=== PATIENT | male | born 1980 | race African-American/Black ===

== ENCOUNTER 2016-09-14 12:22 | Inpatient (IN) | payer OTHER ==
--- NOTE | ~2016-09-14 | CO ---
Unit #: [id number] #: [id number] Patient: RENETTA GUTHRIE [id number] [address] [place], [place] [address] [id number] I MR#: [id number] NAME: RENETTA GUTHRIE ROOM: 317 Age: 36 Sex: M Admission Date: 09/14/2016 : 1980 Attending Physician: Luis March M.D. Primary Care Physician: Bruna Whalen A.P.R.N. Consultation Date: 09/16/2016 CONSULTATION REPORT REASON FOR CONSULTATION Sleep apnea. HISTORY OF PRESENT ILLNESS A 36-year-old gentleman, who carries a diagnosis of COPD, who presents with a several-day history of wheezing, shortness of breath, and cough with yellow sputum. He apparently was recently started on albuterol and Breo, with minimal improvement. He presented to the hospital where he was admitted. He does feel better today on IV steroids and nebulized bronchodilators. He does have sleep apnea. He wears a CPAP "for the most part" with all sleep. He does work 3rd shift. When he is able to obtain adequate sleep, he is not sleepy. He denies any history of snoring with the mask in place. PAST MEDICAL HISTORY COPD, hypertension, diabetes, chronic back pain, and neuropathy. ALLERGIES Lisinopril. HOME MEDICATIONS Breo and an albuterol inhaler, Zetia, chlorthalidone, irbesartan, tizanidine, Percocet, vitamins, Coreg, Elavil, Norvasc, metformin, Flonase, gabapentin, a variety of insulins, hydralazine, lisinopril, metoprolol, Lipitor, and Prilosec. SOCIAL HISTORY Stopped smoking two years ago. FAMILY HISTORY No definite familial lung disease. REVIEW OF SYSTEMS He is feeling better. He denies chest pain, palpitations, abdominal pain, melena, hematochezia, hematemesis, hematuria, dysuria, focal weakness, or paresthesias. Further review of systems is negative. He cannot identify who his sleep doctor is. He got a sleep study at [place], a year or so ago, and apparently does not keep his followups, although that is unclear, he just cannot remember who his sleep doctor is. PHYSICAL EXAMINATION GENERAL: Reveals a gentleman who is sitting on the side of the bed, in no acute distress. VITAL SIGNS: Afebrile, pulse 94, respiratory rate is 18, blood pressure Unit #: [id number] #: [id number] Patient: RENETTA GUTHRIE is 135/69, 5 foot 11 inches, and 444 pounds with a BMI of 51. HEENT: Pupils equal, round, and reactive to light. Sclerae anicteric. Head atraumatic. NECK: Supple. No supraclavicular or cervical adenopathy appreciated. CHEST: Decreased breath sounds. A rare wheeze, but reasonable breath sounds. CARDIAC: Reveals regular rate and rhythm. No pathologic murmur, rub, or gallop. ABDOMEN: Obese, soft, and nontender. EXTREMITIES: Reveal no clubbing, cyanosis, or edema. No calf tenderness. SKIN: Warm and dry without rash or diaphoresis. Please note his morbid obesity limits exam. LABORATORY EXAMINATION CT scan; some motion artifact, no PE. The radiologist is calling a pulmonary nodule, it is versus an intrapulmonary lymph node because it is right on secondary lobule. His BUN is 0.9. BNP 138. White blood cell count 11.8, hemoglobin 11.4, and platelet count 245. Rhythm strip, some pauses last night, hence the consultation. Cardiology is evaluating. IMPRESSION 1. Chronic obstructive pulmonary disease with exacerbation, improving, it is unclear how firm the diagnosis of chronic obstructive pulmonary disease is, could be a strong asthma component. 2. Obstructive sleep apnea, clinically compliant, although I do suspect some degree of noncompliance. It sounds at least historically than when he wears it he is well treated. 3. Cardiac arrhythmias, possibly related to sleep apnea. 4. Pulmonary nodules versus intrapulmonary lymph nodes. 5. Multiple medical problems, above. PLAN Certainly weight loss is of the greatest benefit. I will check nocturnal oximetry on CPAP. If it shows adequate oxygenation, then I suspect he is fairly close to being well treated. Certainly, use of his CPAP will all sleep is required. If it does show desaturations, particularly in the form of sleep apnea, we will increase his CPAP. I will start Dulera and continue his Breo at home. 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 I would suggest outpatient PFTs and consider allergy evaluation if not already performed. Thank you very much for allowing me to participate in the care of Mr. Guthrie. Dictated by... Sarah Ortega/brian TD: 09/17/2016 14:17 JOB #: [id number] Unit #: [id number] #: [id number] Patient: RENETTA GUTHRIE CONSULTATION REPORT Page 1 of 1 X Eric Coleman MD CONSULTATION REPORT
--- NOTE | ~2016-09-14 | BMI ---
[facility] Nutrition Therapy DATE: 09/15/16 Patient: RENETTA WEINBERG Physician: RICHIE Address: [address] [place] [address] Room/Bed: [address] [place] [address], Zip: [place] [address] Admit Date: 09/14/16 Date of : [birth year] Height: Weight: 372 169 HIGH BMI NOTE: DX: 36 y/o male admitted with dyspnea ANTHROPOMETRICS: Ht: 71", Wt: 169 kg, BMI: 52 (Stage III obese) DIET: Consistent carb diet INTERVENTION: Restricted diet, meds/fluids per MD RECOMMENDATIONS: Consider adding healthy heart restriction to current diet order to promote a gradual weight loss towards a healthy BMI range. Respectfully, Lissy Lockhart RD, LD Food and Nutritional Services [facility] cc: client file
--- NOTE | ~2016-09-14 | HP ---
Unit #: [id number] #: [id number] Patient: RENETTA WEINBERG [id number] [address] [address] [id number] I MR#: [id number] NAME: RENETTA WEINBERG ROOM: 317 Age: 36 Sex: M Admission Date: 09/14/2016 : 1980 Attending Physician: Jeovany Restrepo M.D. Primary Care Physician: Bruna Whalen A.P.R.N. HISTORY AND PHYSICAL CHIEF COMPLAINT Shortness of breath. HISTORY OF PRESENT ILLNESS The patient is a 36-year-old male with a history of COPD, diabetes, hypertension, and multiple medical problems, who presented to [facility] earlier this morning complaining of shortness of breath with a productive cough of yellow sputum for two weeks. The patient was seen by the PMD four days ago and was given inhalers with Breo and albuterol. The patient was diagnosed with influenza pneumonia back in March and stayed in [facility] for a week and then was discharged home. The patient stated that patient has been having on and off shortness of breath for the last few months. The patient stopped smoking two years ago and has smoked a pack of cigarettes daily for six to seven years. The patient denies any fever, chills, nausea, vomiting, or chest pain. PAST MEDICAL HISTORY 1. Chronic obstructive pulmonary disease. 2. Hypertension. 3. Diabetes. 4. Chronic back pain. 5. Neuropathy. PAST SURGICAL HISTORY None. ALLERGIES Lisinopril. HOME MEDICATIONS 1. Zetia. 2. Chlorthalidone. 3. Irbesartan. 4. Tizanidine. 5. ProAir. 6. Percocet. 7. Vitamin. 8. Coreg. 9. Amitriptyline. 10. Amlodipine. 11. Metformin. 12. Flonase. 13. Gabapentin. Unit #: [id number] #: [id number] Patient: RENETTA WEINBERG 14. Breo. 15. Humalog. 16. Levemir. 17. Hydralazine. 18. Lisinopril. 19. Metformin. 20. Metoprolol. 21. Lipitor. 22. Prilosec. SOCIAL HISTORY He stopped smoking two years ago. Denies alcohol or any illicit drug abuse. FAMILY HISTORY Reviewed and none. PHYSICAL EXAMINATION GENERAL: Patient is lying in bed not in acute distress. VITAL SIGNS: Temperature is 37.2, pulse 104, respiratory rate 24, blood pressure 171/95, and saturation 93% on room air. Weight is 372 pounds. HEENT: Head atraumatic, normocephalic. Pupils equal, round, and reactive to light and accommodation. Extraocular movements are intact. NECK: Supple. LUNGS: Decreased air entry at the bases. No rhonchi, no rales. HEART: Regular rate and rhythm. ABDOMEN: Soft. Positive bowel sounds. EXTREMITIES: No cyanosis, no clubbing. NEUROLOGIC: Alert, awake, and oriented. No gross focal motor deficit. DIAGNOSTIC STUDIES LABORATORY: D-dimer of 264. Sodium 139, potassium 3.8, chloride 103, bicarb 30, glucose 195, BUN 16, creatinine 1, calcium 8.8, protein 7.7, AST 21, and ALT 20. WBC 9.3, hemoglobin 11.5, hematocrit 34.2, and platelets 235,000. IMAGING: CTA of the chest shows limited evaluation secondary to suboptimal opacification of distal segmental and subsegmental pulmonary arteries and obscuration by the patient's body habitus. Allowing for this, no central pulmonary embolism is seen. A 7 mm noncalcified nodule in the right upper lobe is noted. A 5 mm nodule is seen within the right middle lobe just below the minor fissure. These are nonspecific. Linear subsegmental atelectatic-type changes in the linear subsegment left upper lobe and superior right lower lobe. No consolidations. Cholecystectomy. Mildly prominent left infrahilar lymph nodes. Chest x-ray shows no active disease. ASSESSMENT 1. Chronic obstructive pulmonary disease exacerbation. 2. Bronchitis. 3. Uncontrolled diabetes. PLAN Admit the patient to observation with telemetry. Continue with IV steroid Solu-Medrol 60 mg q.8, DuoNebs q.4 p.r.n., azithromycin, and sliding scale. Repeat the labs again in the morning. Patient can have CPAP at night for sleep apnea. Further recommendations will follow. Unit #: [id number] #: [id number] Patient: LENARDRENETTA Almeida Dictated by Sarah Plascencia TD: 09/14/2016 15:19 JOB #: [id number] HISTORY AND PHYSICAL Page 1 of 1 X X HISTORY AND PHYSICAL
--- NOTE | ~2016-09-14 | CO ---
Unit #: [id number] #: [id number] Patient: RENETTA WEINBERG [id number] [facility]. [place] [address] [place], [place] [address] [id number] I MR#: [id number] NAME: RENETTA WEINBERG ROOM: 317 Age: 36 Sex: M Admission Date: 09/14/2016 : 1980 Attending Physician: Luis March M.D. Primary Care Physician: Bruna Whalen A.P.R.N. Consultation Date: 09/16/2016 CONSULTATION REPORT REASON FOR CONSULT Sinus pauses. HISTORY OF PRESENT ILLNESS This is a 36-year-old male previously known to Dr. Lux and currently Dr. Giraldo with a past medical history of chest pain. The patient underwent a treadmill stress test in October 2013 which revealed no EKG changes to suggest ischemia. A 24-hour Holter monitor was obtained on 12/23/2011 which revealed sinus rhythm and rare PVCs. He most recently had a cardiac catheterization in 2016 at one of the [facility] facilities and states that the test was normal and no intervention was needed. He was told that he was having chest pain likely from uncontrolled high blood pressure. Additional past medical history includes hyperlipidemia, diabetes mellitus, COPD, obesity, obstructive sleep apnea and allergy to ELEANOR inhibitors. The patient is a reformed smoker. He presented to the hospital with complaints of shortness of breath. He states that he has been short of breath for the last several months and more recently it worsened. He has also had a productive cough with yellow sputum and a possible fever though he did not check his temperature. He was just started on Breo and albuterol as an outpatient for shortness of breath. He has had some pain in his chest that is present with coughing. There is no radiation. There are no associated symptoms with nausea, vomiting or diaphoresis. He has had some occasional palpitations but nothing sustained. He admits to shortness of breath at night. He has also had some swelling in his legs. He has had no dizziness or syncope. He was admitted to the hospital for a COPD exacerbation with acute bronchitis. He was started on Solu-Medrol, nebulizers, and azithromycin. Blood pressure was elevated and he was given a dose of Vasotec. He was placed on telemetry and was noted to have pauses up to 3.14 seconds between the hours of 2 a.m. to 6:30 a.m. while the patient was sleeping. The nurse states that he was on his CPAP but the machine was not turned on when she came in though the mask was in place. Cardiology was consulted for pauses. The patient is currently resting comfortably and denies any symptoms. He is on high-dose carvedilol and, due to pauses, it will be decreased. Records have been requested from [facility]. PAST MEDICAL HISTORY 1. Recent cardiac catheterization reportedly at [facility] which was normal per patient. Records unavailable. 2. Treadmill stress test 11/07/2013 revealed no EKG changes to suggest ischemia. 3. 24-hour Holter monitor 12/23/2011 revealed sinus rhythm with rare Unit #: [id number] #: [id number] Patient: RENETTA WEINBERG PVCs. 4. Hypertension. 5. Hyperlipidemia. 6. Diabetes mellitus type 2. 7. Obesity. 8. COPD. 9. Obstructive sleep apnea on CPAP. PAST SURGICAL HISTORY 1. Cardiac catheterization. 2. Cholecystectomy. HOME MEDICATIONS 1. Ezetimibe 10 mg p.o. daily. 2. Chlorthalidone 25 mg p.o. daily. 3. Irbesartan 300 mg p.o. daily. 4. Tizanidine 4 mg p.o. t.i.d. p.r.n. muscle spasms. 5. ProAir one to two puffs inhalation q.4 h. p.r.n. shortness of breath. 6. Percocet 7.5/325 mg p.o. b.i.d. p.r.n. for pain. 7. Vitamin D2 50,000 units p.o. weekly every Monday. 8. Carvedilol 12.5 mg p.o. b.i.d. 9. Amitriptyline 25 mg p.o. h.s. 10. Amlodipine 5 mg p.o. daily. 11. Gabapentin 400 mg p.o. t.i.d. 12. Breo one inhalation daily. 13. Humalog 20 units subcu b.i.d. 14. Levemir 35 units subcu b.i.d. 15. Hydralazine 50 mg p.o. t.i.d. 16. Metformin 500 mg p.o. b.i.d. 17. Metoprolol tartrate 25 mg p.o. daily. 18. Atorvastatin 20 mg p.o. daily. 19. Prilosec 40 mg p.o. daily. ALLERGIES ELEANOR inhibitors. SOCIAL HISTORY The patient lives in a private residence. He is a reformed smoker. There are no reports of alcohol or illicit drug use. FAMILY HISTORY Noncontributory. REVIEW OF SYSTEMS A 10-point review of systems negative except for details above in the HPI. PHYSICAL EXAMINATION VITAL SIGNS: Temperature 97.5, pulse 94, blood pressure 185/69. GENERAL: This is a 36-year-old male in no acute distress. SKIN: Warm and dry. NECK: Supple. No jugular vein distention. No hepatojugular reflux. Normal carotid upstrokes. No carotid bruits auscultated. HEART: S1, S2. Regular rate and rhythm. No murmurs, rubs, or gallops. LUNGS: Bilateral breath sounds have good air entry throughout all lung mahan. Respirations even and unlabored. No rales, rhonchi, or wheezes. ABDOMEN: Soft, nontender, nondistended. Positive bowel sounds auscultated times four quadrants. No ascites noted. Unit #: [id number] #: [id number] Patient: RENETTA WEINBERG EXTREMITIES: Bilateral lower extremities have no pretibial pitting edema. DP and PT pulses are 2+. Capillary refill is less than 2 seconds. DIAGNOSTIC STUDIES LABORATORY: White blood cell count 11.8, hemoglobin 11.4, hematocrit 35.5, platelets 245. Sodium 139, potassium 4.1, chloride 98, CO2 is 29, BUN 22, creatinine 0.9, glucose 328. BNP 138. Total cholesterol 130, triglycerides, 150, LDL 67, HDL 33. TSH 0.16. D-dimer 484. IMAGING: Chest x-ray reveals no acute findings. Poor quality film. CTA of the chest is limited secondary to suboptimal opacification due to body habitus. No central pulmonary embolus. Right upper lung nodule and right middle lobe nodule, nonspecific. Linear atelectasis. Left upper hilar lymph node. Cholecystectomy. Recommend CT of the chest as an outpatient in six months. CARDIOVASCULAR: EKG reveals sinus tachycardia with a ventricular rate of 103 beats per minute. Nonspecific ST-T-wave changes noted. QTC 458 msec. IMPRESSION 1. Acute exacerbation of chronic obstructive pulmonary disease. 2. Obstructive sleep apnea. 3. Obesity. 4. Sinus pauses up to 3.14 seconds during sleep. 5. Hypertension. 6. Hyperlipidemia. 7. Diabetes mellitus, insulin dependent. 8. Reportedly normal cardiac catheterization in 2017. Records pending. 9. Reformed tobacco abuse. PLAN 1. The patient presented to the hospital with complaints of shortness of breath. He was admitted for COPD exacerbation and started on antibiotics, nebulizers, and steroids. 2. Cardiology was consulted for sinus pauses which appear to be during hours of sleep. 3. Patient's beta taqueria will be decreased with parameters. 4. TSH level is low. Will check a free T3 and T4. 5. 2D echocardiogram with Doppler will be ordered to assess left ventricular function and valves. 6. Patient has been advised to lose weight by means of exercise and reduction of caloric intake. Dictated by... Portia Valdez APRN for Sarah Sutherland TD: 09/19/2016 15:33 JOB #: [id number] Unit #: [id number] #: [id number] Patient: RENETTA WEINBERG CONSULTATION REPORT Page 1 of 1 X X CONSULTATION REPORT
--- NOTE | ~2016-09-14 | DS ---
Unit #: [id number] #: [id number] Patient: RENETTA WEINBERG [id number] [address] [place], [place] [address] [id number] I MR#: [id number] NAME: RENETTA WEINBERG ROOM: 317 Age: 36 Sex: M Admission Date: 09/14/2016 : 1980 Discharge Date: 09/19/2016 Attending Physician: Luis March M.D. Primary Care Physician: Bruna Whalen A.P.R.N. DISCHARGE SUMMARY ADMITTING DIAGNOSIS Acute hypoxic respiratory failure. FURTHER DIAGNOSES 1. Chronic obstructive pulmonary disease exacerbation versus asthma exacerbation. 2. Sinus pauses. 3. Morbid obesity. 4. Sleep apnea. 5. Hypertension. 6. Hyperlipidemia. 7. Diabetes mellitus type 2, poorly controlled. HISTORY OF PRESENT ILLNESS The patient is a 36-year-old gentleman with past medical history of morbid obesity, history of sleep apnea who intermittently uses CPAP machine, diabetes, hypertension. Presented to the emergency room with the chief complaint of shortness of breath and cough with yellow sputum. In the hospital course he was started on steroids. He was started on broad-spectrum antimicrobials for community-acquired pneumonia. His breathing was slowly improving. He was having sleep apnea at night, and he was noted to sinus pauses. Cardiology was consulted and started him on beta-taqueria, encouraged him to continue his CPAP machine. He does not have any pulmonary as an outpatient. We consulted Dr. Coleman. Dr. Coleman evaluated him. He recommends outpatient studies for PFT and also possibly studies for asthma evaluation. He is morbidly obese, and he wants to be evaluated for bariatric surgery. Bariatric surgery coordinator came and gave the information. He is supposed to follow up with them as an outpatient for further management. Unfortunately, he was noncompliant with his medications. Spoke with him at length and encouraged him to take all his medications regularly. PHYSICAL EXAMINATION ON THE DAY OF DISCHARGE VITAL SIGNS: Temperature 97.9, pulse rate 98 respirations 18, blood pressure 147/91. GENERAL: The patient is alert and oriented x3, lying in bed, no acute distress. HEENT: Normocephalic, atraumatic. No icterus. PERRLA. Extraocular muscles intact. NECK: Supple. No JVD. HEART: S1, S2. Regular rate and rhythm. CHEST: Bilateral equal air entry. Clear to auscultation. EXTREMITIES: Mild edema. Unit #: [id number] #: [id number] Patient: RENETTA WEINBERG DIAGNOSTIC STUDIES CARDIOVASCULAR: He did have a two-D echocardiogram in the hospital course, which showed an EF of 50% to 55%. Technically extremely limited study. Mildly dilated left atrium. Mild mitral regurgitation. Mild tricuspid regurgitation. RV systolic pressure 27 mmHg. No evidence of any pericardial effusion. DISCHARGE MEDICATIONS 1. Lipitor 20 mg daily. 2. Albuterol 2 puffs q.4 p.r.n. shortness of breath. 3. Medrol Dosepak. 4. Flonase 0.05% nasal spray daily. 5. Neurontin 400 mg t.i.d. 6. Amitriptyline 25 mg at bedtime. 7. Zetia 10 mg daily. 8. Coreg 6.5 mg b.i.d. 9. Norvasc 5 mg daily. 10. Metoprolol 25 mg daily. 11. Breo Ellipta 100/25 mcg daily. 12. Chlorthalidone 25 mg daily. 13. Humibid LA 600 mg b.i.d. 14. Hydralazine 50 mg t.i.d. 15. Avapro 300 mg daily. 16. Levemir 75 units subcu b.i.d. 17. NovoLog 20 units subcu b.i.d. before meals 18. Insulin sliding scale coverage. 19. Oxycodone 7.5/325 mg p.o. b.i.d. p.r.n. pain. Kindly note we are not giving any new prescriptions. He will be getting his own medications. 20. Omeprazole 40 mg daily. 21. Zanaflex 4 mg t.i.d. FOLLOWUP He is instructed to follow with pulmonary, cardiology and bariatric surgery as an outpatient. NOTE: Total time spent in his care - 35 minutes. Dictated by..Sarah Veliz/marcia TD: 09/19/2016 15:16 JOB #: [id number] Unit #: [id number] #: [id number] Patient: LENARD,RENETTA R DISCHARGE SUMMARY Page 1 of 1 X X DISCHARGE SUMMARY
--- NOTE | ~2016-09-14 | EKG ---
PATIENT: RENETTA WEINBERG UNIT #: [id number] Ventricular Rate: 103 BPM Atrial Rate: 103 BPM P-R Interval: 154 ms QRS Duration: 98 ms Q-T Interval: 350 ms QTC Calculation(Bezet): 458 ms P Bloomingrose: 49 degrees Calculated R [place]: 73 degrees Calculated T Bloom[place]: 74 degrees Diagnosis Line: Sinus tachycardia Diagnosis Line: Otherwise normal ECG Diagnosis Line: When compared with ECG of 15-DEC-2011 07:38, Diagnosis Line: No significant change was found Diagnosis Line: Confirmed by JAEL BOYER MD ([id number]) on Diagnosis Line: 09/17/2016 4:27:23 PM INTERPRETING MD: ROSALIND MARTINEZ
--- NOTE | ~2016-09-14 | A ---
[facility] Nutrition Therapy DATE: 09/19/16 Patient: RENETTA WEINBERG Physician: [email or web address] Address: [address] [place] [address] Room/Bed: [address] [place] [address], Zip: [place] [address] Admit Date: 09/14/16 Date of : [birth year] Height: Weight: 440 200 NUTRITIONAL ASSESSMENT: REASON: Consult re: diabetic diet education Admitting Dx: 36 y/o male admitted with COPD exacerbation and bronchitis PMH: COPD, DM, HTN, hx smoking (quit 2 years ago), sleep apnea, neuropathy, chronic back pain Anthropometrics: 71", Wt: 169 kg, BMI: 52 (Stage III obese) Labs: Glucose 287, POC 272-295, BUN 31, lipid panel WNL, no A1C available Meds: Vitamin D, Solu-medrol, PPI, Levemir, Novolog (high SSI) I/O & Bowel function: Last BM 09/15 Skin Integrity: No issues, 1+ edema BLE Assessment: Chart reviewed, events noted. See high BMI note dated 09/15/16, RD consulted to provide diabetic diet education. Patient is on 2L nasal cannula intermittently and CPAP at night due to sleep apnea. He takes insulin and Metformin at home to control his diabetes, and he states he is compliant with this. Says his does the shopping/cooking, encouraged him to share the diet education handouts with her. Reviewed the following handouts with the patient: T2 diabetes MNT, label reading tips, 1800 calorie 5-day sample meal plan. The patient was engaged and asked questions, showed good understanding of the materials, left contact info. Unsure of what his motivation level to follow the diet at home will be. Encouraged weight loss. No A1C lab available. See recs below. Dx: 1) Stage III obese r/t diet, lifestyle, inactivity AEB BMI 52. 2) Food and nutrition related knowledge deficit r/t no prior diet education AEB RD consult, diabetic/weight loss education needed. Intervention: Diabetic/weight loss diet education, check A1C Monitoring, Evaluation and Goals: 1. Gradual weight loss towards a healthy BMI range. 2. Glucose, A1C WNL. 3. Understanding/implementation of diet education. Monitor: Per protocol, criteria to determine if above goals met [facility] Nutrition Therapy DATE: 09/19/16 Patient: RENETTA WEINBERG Physician: RICHIE Address: [address] [place] [address] Room/Bed: [address] [place] [address], Zip: [place] [address] Admit Date: 09/14/16 Date of : [birth year] Height: Weight: 440 200 Recommendations: 1. Consider adding healthy heart restriction to current diet order (consistent carb) to promote a gradual weight loss towards a healthy BMI range. 2. Check A1C lab. Optimize insulin regimen to promote adequate blood glucose control (note the patient is also on Solu-medrol). 3. RD provided both verbal and written diet education on diabetic/weight loss diet with handouts and contact info. Patient showed good understanding of the materials and was engaged throughout the education asking questions. Mild nutrition risk Respectfully, Lissy Lockhart, ISAIAH, LD Food and Nutritional Services [facility] cc: client file
[~2016-09-14 12:22] MED LIST: ALBUTEROL17 G1 IH; ALBUTEROL17 GM INH; ALLERGY10 M2 PO; ATORVASTATIN CA20 MG PO; AVAPRO PO; AZITHROMYCIN250 MG PO; BACTRIM DS TABL1 TA1 PO; BP MED; CHOLESTEROL MED; DIFLUCAN100 MG PO; DOXYCYCLINE HY100 M1 PO; FLEXERIL10 MG PO; GLIPIZIDE10 MG/BOTT PO; GLUCOPHAGE500 MG PO; GLUCOPHAGE850 MG PO; GLUCOTROL10 MG PO; HUMALOG100 U/ML SQ; HUMULIN N100 U/ML SQ; HYDROCHLOROTHIA25 MG PO; LANTUS100 U/ML SUBQ; LIPITOR20 MG PO; LISINOPRIL10 MG PO; LISINOPRIL20 MG PO; LOMOTIL TABLET1 TAB PO; LOPID600 MG PO; MEDROL PO; METFORMIN HCL500 M1 PO; METFORMIN PO; METOPROLOL TAR25 MG PO; NAPROSYN500 MG PO; NEURONTIN300 MG PO; NOVOLIN R100 UNITS/ SQ; OMEPRAZOLE40 M1 PO; PERCOCET5/325 PO; PHENERGAN DM PO; PHENERGAN PO; PREDNISONE50 MG PO; PRILOSEC PO; PRINIVIL20 M1; PRINIVIL40 MG PO; RANITIDINE HCL150 M1 PO; SINGULAIR PO; TESSALON200 MG PO; TOPROL XL PO; ULTRAM PO; UNKNOWN PAIN MED; ZESTRIL10 M1 PO; ZITHROMAX PO; ZOVIRAX400 MG PO; [UNRECOGNIZED DRUG - REMARK]
[2016-09-14] MEDS ORDERED: BREO ELLIPTA 11 EACH INH (14:25)
[2016-09-14] MEDS ORDERED: GABAPENTIN400 M2 PO (14:25)
[2016-09-14] MEDS ORDERED: HUMALOG100 UNIT/1 SUBQ (14:27)
[2016-09-14] MEDS ORDERED: LEVEMIR100 UNITS/ SUBQ (14:28)
[2016-09-14] MEDS ORDERED: HYDRALAZINE HCL25 MG PO (14:28)
[2016-09-14] MEDS ORDERED: PERCOCET PO (14:32)
[2016-09-14] MEDS ORDERED: VITAMIN D2400 UNIT PO (14:33)
[2016-09-14] MEDS ORDERED: COREG12.5 MG PO (14:34)
[2016-09-14] MEDS ORDERED: AMITRIPTYLINE H25 MG PO (14:35)
[2016-09-14] MEDS ORDERED: AMLODIPINE BESYL5 MG PO (14:35)
[2016-09-14] MEDS ORDERED: EZETIMIBE10 MG PO (14:36)
[2016-09-14] MEDS ORDERED: CHLORTHALIDONE25 M1 PO (14:36)
[2016-09-14] MEDS ORDERED: IRBESARTAN300 MG PO (14:37)
[2016-09-14] MEDS ORDERED: TIZANIDINE HCL4 M1 PO (14:37)
[2016-09-14] MEDS ORDERED: METFORMIN HCL500 M1 PO (14:39)
[2016-09-14] MEDS ORDERED: PROAIR RESPICL90 MCG INH (14:39)
[2016-09-14] MEDS ORDERED: FLONASE ALLERG9.9 ML (14:41)
[2016-09-15 05:39] LABS: HEMATOCRIT 35.5 % (38.0-50.0); HEMOGLOBIN 11.4 gm/dL (13.0-16.0); MEAN CELL VOLUME 73.4 FL (83-96); MEAN CORPUSCULAR HEMOGLOBIN 23.6 PG (28-34); MEAN CORPUSCULAR HGB CONC 32.2 g/dL (30-36); MEAN PLATELET VOLUME 9.8 FL (6.5-11.5); RED BLOOD COUNT 4.84 X10e (3.90-5.60); RED CELL DISTRIBUTION WIDTH 14.5 % (11.0-15.5); WHITE BLOOD COUNT 11.8 X10e3 (4.0-10.5)
[2016-09-15 07:09] LABS: CALCIUM SERUM 8.7 mg/dL (8.4-10.2); GLOM FILT RATE Estimated 111.7 mL/min (>60); POTASSIUM 4.3 mmol/L (3.5-5.1)
[2016-09-16 07:03] LABS: BUN/CREATININE RATIO 24.44; CALCIUM SERUM 8.7 mg/dL (8.4-10.2); CREATININE SERUM 0.9 mg/dL (0.6-1.4); GLOM FILT RATE Estimated 126.9 mL/min (>60); POTASSIUM 4.1 mmol/L (3.5-5.1)
[2016-09-16 15:07] LABS: FREE T3 2.8 pg/mL (2.5-3.9)
[2016-09-16 15:08] LABS: FREE THYROXIN (T4) 0.96 ng/dL (0.58-1.64)
[2016-09-17 07:37] LABS: BUN/CREATININE RATIO 27.5; CALCIUM SERUM 8.6 mg/dL (8.4-10.2); CREATININE SERUM 0.8 mg/dL (0.6-1.4); GLOM FILT RATE Estimated 133.3 mL/min (>60); POTASSIUM 3.9 mmol/L (3.5-5.1)
[2016-09-18 09:23] LABS: HEMATOCRIT 39.8 % (38.0-50.0); HEMOGLOBIN 12.6 gm/dL (13.0-16.0); MEAN CELL VOLUME 73.2 FL (83-96); MEAN CORPUSCULAR HEMOGLOBIN 23.2 PG (28-34); MEAN CORPUSCULAR HGB CONC 31.7 g/dL (30-36); MEAN PLATELET VOLUME 10.1 FL (6.5-11.5); RED BLOOD COUNT 5.44 X10e (3.90-5.60); RED CELL DISTRIBUTION WIDTH 14.6 % (11.0-15.5); WHITE BLOOD COUNT 16.8 X10e3 (4.0-10.5)
[2016-09-18 09:37] LABS: CALCIUM SERUM 8.9 mg/dL (8.4-10.2); GLOM FILT RATE Estimated 111.7 mL/min (>60); POTASSIUM 4.1 mmol/L (3.5-5.1)
[2016-09-19 08:08] LABS: BUN/CREATININE RATIO 28.18; CALCIUM SERUM 8.9 mg/dL (8.4-10.2); CREATININE SERUM 1.1 mg/dL (0.6-1.4); GLOM FILT RATE Estimated 99.6 mL/min (>60)
[2016-09-19] MEDS ORDERED: MEDROL DOSEPAK4 MG PO (14:43)
[2016-09-19] MEDS ORDERED: HUMIBID-LA600 MG PO (16:06)
== END 2016-09-19 16:38 | disposition home or self-care (01) | DRG 189 ==
LOC: PREINTOOBSV 12:24 → UNDOADMOB 13:56 → CEDOF 13:56 → C3A PCU 14:13 → CEDOF 14:49 → C3A PCU 14:49
PROVIDERS: Internal Medicine; Internal Medicine Cardiovascular Disease
PROC: B24BZZZ Ultrasonography of Heart with Aorta (ICD-10-PCS; principal; 2016-09-16)
DX: J96.01 Acute respiratory failure with hypoxia (principal); I49.5 Sick sinus syndrome; J44.0 Chronic obstructive pulmonary disease with (acute) lower respiratory infection; J45.901 Unspecified asthma with (acute) exacerbation; E11.65 Type 2 diabetes mellitus with hyperglycemia; J44.1 Chronic obstructive pulmonary disease with (acute) exacerbation; Z68.43 Body mass index [BMI] 50.0-59.9, adult; J20.9 Acute bronchitis, unspecified; E66.01 Morbid (severe) obesity due to excess calories; G47.33 Obstructive sleep apnea (adult) (pediatric); I10 Essential (primary) hypertension; E78.5 Hyperlipidemia, unspecified; Z79.4 Long term (current) use of insulin; Z87.891 Personal history of nicotine dependence; Z88.8 Allergy status to other drugs, medicaments and biological substances; Z90.49 Acquired absence of other specified parts of digestive tract; R91.8 Other nonspecific abnormal finding of lung field
CPT/HCPCS: 80048; 80061; 80202; 82947; 83735; 83880; 84439; 84443; 84481; 85027; 85379; 90732; 93005; 93306; 94640; 94664; 94760; G0009; J0360; J0456; J1650; J1815; J2930